=== PATIENT | female | born 1985 | race Caucasian/White ===

== ENCOUNTER 2017-04-27 02:06 | Emergency (ER) | payer OTHER ==
[~2017-04-27] VITALS: Ht 172.7 cm; Wt 56.7 kg
[~2017-04-27 02:06] MED LIST: ACYCLOVIR 800800 MG PO; ADDERALL 30 MG30 MG PO; BACTRIM DS TAB1 EACH PO; CIPROFLOXACIN500 M1 PO; CLEOCIN HCL150 MG PO; FLAGYL500 MG PO; FLONASE 0.05%50 MCG NASAL; FLOXIN OTI0.3 %/5 M1 OT; KEFLEX500 MG PO; LAMICTAL 25 MG25 M1 PO; MUPIROCIN22 GM TOP; NOHOMEMEDICATIONS; NORCO 5-325 TA1 EACH PO; ONDANSETRON HCL4 M2 PO; TRAZODONE 150150 M1 PO; XANAX 0.5 MG0.5 M1 PO; XANAX 0.5 MG0.5 MG PO; ZPAK PO
[2017-04-27] MEDS ORDERED: ZOHYDRO ER10 M1 PO (03:41)
[2017-04-27 03:47] VITALS: BP 113/80
== END 2017-04-27 03:45 | disposition home or self-care (01) ==
LOC: ER 02:06
DX: S66.811A Strain of other specified muscles, fascia and tendons at wrist and hand level, right hand, initial encounter (principal); F31.9 Bipolar disorder, unspecified; F90.9 Attention-deficit hyperactivity disorder, unspecified type; Z88.0 Allergy status to penicillin; Z88.6 Allergy status to analgesic agent; W10.8XXA Fall (on) (from) other stairs and steps, initial encounter; Y93.01 Activity, walking, marching and hiking; Y92.89 Other specified places as the place of occurrence of the external cause; Y99.8 Other external cause status

== ENCOUNTER 2019-04-18 22:01 | Emergency (ER) | payer OTHER ==
[~2019-04-18] VITALS: Ht 172.7 cm; Wt 56.7 kg
[~2019-04-18 22:01] MED LIST changes: +ZOHYDRO ER10 M1 PO
[2019-04-18 23:19] LABS: AMP/METHAMP POSITIVE (Negative); BARBITURATES Negative (Negative); BENZODIAZEPINES Negative (Negative); COCAINE Negative (Negative); METHADONE Negative (Negative); OPIATES Negative (Negative); PCP Negative (Negative)
[2019-04-19 00:18] LABS: CALCIUM 9.5 mg/dL (8.5-10.1); CREATININE 0.7 mg/dL (0.6-1.0); POTASSIUM 5.1 mmol/L (3.5-5.1)
[2019-04-19 01:00] LABS: ABSOLUTE NEUTROPHILS 3.3 thou/uL (1.4-8.2); BASOPHILS 0.2 % (0.0-2.0); HEMATOCRIT 37.6 % (37.0-47.0); HEMOGLOBIN 12.7 gm/dL (12.0-15.0); LYMPHOCYTES 19.9 % (24.0-44.0); MCH 29.2 pg (26.0-34.0); MCHC 33.9 g/dL (28.0-37.0); MCV 86.2 fL (80.0-100.0); PLATELET COUNT 179 thou/uL (150-400); POLYS 64.9 % (36.0-66.0); RBC 4.36 mil/uL (4.20-5.00); WBC 5.1 thou/uL (4.0-11.0)
[2019-04-19] MEDS ORDERED: KEFLEX500 M1 PO (02:12)
[2019-04-19] MEDS ORDERED: BACTRIM DS TAB1 EACH PO (02:12)
[2019-04-19 02:31] VITALS: BP 120/88
--- NOTE | 2019-04-19 08:42 | EKG ---
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
== END 2019-04-19 02:31 | disposition home or self-care (01) ==
LOC: ER 22:01
PROVIDERS: Emergency Medicine
DX: L03.113 Cellulitis of right upper limb (principal); F90.9 Attention-deficit hyperactivity disorder, unspecified type; F31.9 Bipolar disorder, unspecified; F41.0 Panic disorder [episodic paroxysmal anxiety]; Z88.0 Allergy status to penicillin

== ENCOUNTER 2019-10-10 13:39 | Emergency (ER) | payer OTHER ==
[~2019-10-10] VITALS: Ht 177.8 cm; Wt 61.2 kg
[~2019-10-10 13:39] MED LIST changes: +KEFLEX500 M1 PO
[2019-10-10] MEDS ORDERED: NORCO 5-325 TA1 EAC1 PO (15:11)
[2019-10-10] MEDS ORDERED: BACTRIM DS TAB1 EACH PO (15:11)
[2019-10-10] MEDS ORDERED: IBUPROFEN 800800 M1 PO (15:11)
[2019-10-10 15:53] VITALS: BP 134/71
== END 2019-10-10 15:54 | disposition home or self-care (01) ==
LOC: ER 13:39
DX: L02.91 Cutaneous abscess, unspecified (principal); Z88.0 Allergy status to penicillin; F31.9 Bipolar disorder, unspecified

== ENCOUNTER 2020-08-14 04:19 | Emergency (ER) | payer OTHER ==
[~2020-08-14] VITALS: Ht 175.3 cm; Wt 61.2 kg
[~2020-08-14 04:19] MED LIST changes: +IBUPROFEN 800800 M1 PO; +NORCO 5-325 TA1 EAC1 PO
[2020-08-14] MEDS ORDERED: LAMICTAL200 MG PO (04:26)
[2020-08-14] MEDS ORDERED: ADDERALL XR 3030 MG PO (04:27)
[2020-08-14] MEDS ORDERED: CLEOCIN HCL150 MG PO (06:13)
== END 2020-08-14 07:00 | disposition home or self-care (01) ==
LOC: ER 04:19
DX: L02.415 Cutaneous abscess of right lower limb (principal); Z79.899 Other long term (current) drug therapy; Z88.0 Allergy status to penicillin

== ENCOUNTER 2021-02-19 13:41 | Emergency (ER) | payer OTHER ==
[~2021-02-19] VITALS: Ht 172.7 cm; Wt 63.5 kg
[~2021-02-19 13:41] MED LIST changes: +ADDERALL XR 3030 MG PO; +LAMICTAL200 MG PO
[2021-02-19 13:49] VITALS: BP 153/88
== END 2021-02-19 14:40 | disposition left against medical advice (07) ==
LOC: ER 13:41
DX: L02.419 Cutaneous abscess of limb, unspecified (principal); Z53.21 Procedure and treatment not carried out due to patient leaving prior to being seen by health care provider; F31.9 Bipolar disorder, unspecified; Z88.0 Allergy status to penicillin